=== PATIENT | female | born 1985 | race Caucasian/White ===

== ENCOUNTER → 2017-01-11 | Day surgery (SDC) | payer OTHER ==
[~2017-01-11] VITALS: Ht 149.9 cm; Wt 74.0 kg
[~2017-01-11] MED LIST: ACETAMINOPHEN 1000 MG/100 ML 100 ML IV ONE; CHLORHEXIDINE GLUCONATE 2 % 1 PACK (2 CLOTHS) TOPICAL PRN; DO NOT ADM ANY ANTICOAGULANT DRUGS PRN; FAMOTIDINE 20 MG/2 ML VIAL ONE; INSULIN HUMAN REGULAR 1,000 UNITS/10 ML VIAL SQ PRN; KETOROLAC TROMETHAMINE 30 MG/ML (IVP) VIAL IV PUSH SCH; KETOROLAC TROMETHAMINE 60 MG/2 ML (IM) VIAL IM ONE; LACTATED RINGER'S 1000 ML IV PRN; METOPROLOL TARTRATE 25 MG TAB PO PRN; MIDAZOLAM HCL 2 MG/2 ML VIAL ONE; MORPHINE SULFATE 4 MG/ML INJ ONE; ONDANSETRON HCL 4 MG/2 ML VIAL IV PUSH ONE; POVIDONE IODINE 5% (ANTISEPSIS KIT) 4 APPLICATIONS EACH NARE PRN; PROMETHAZINE INJ 25 MG/ML VIAL ONE; PROPOFOL 200 MG/20 ML AMP IV ONE; SODIUM CHLORID 0.9% 500 ML IV PRN; ceFAZolin 2 GM PREMIX 50 ML ONE
--- NOTE | 2017-01-11 09:06 | MP ---
cc: LOI CANTRELL MD,RENA GRAY,KANCHAN Owen MD DATE OF SURGERY: 01/11/2017 PREOPERATIVE DIAGNOSIS 1. Stage IIB cervix cancer. 2. Status post external radiation with ewiiaapaayp chemotherapy. 3. In need of brachytherapy. POSTOPERATIVE DIAGNOSIS 1. Stage IIB cervix cancer. 2. Status post external radiation with ewiiaapaayp chemotherapy. 3. In need of brachytherapy. PROCEDURE Examination under anesthesia, ultrasound-guided cervix dilation with Abraham sleeve placement for brachytherapy. SURGEON Dr. Kanchan Gray. SOLAR LAB TECHNICIAN [place] Anesthesia Director. ANESTHESIA Laryngeal mask anesthesia. ESTIMATED BLOOD LOSS 20 cc. 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 She has completed her external radiation with weekly ewiiaapaayp chemotherapy under the direction of Dr. Loi Cantrell in [facility]. He contacted me and asked if we could place a Abraham sleeve to help facilitate brachytherapy. She was seen in our office and counseled. The procedure was reviewed, questions were answered. She is seen again this morning. She expressed good understanding, questions were answered and she agrees to move forward. FINDINGS On exam under anesthesia there is no appreciably enlarged inguinal lymph nodes. External genitalia without mass or lesion. The cervix is circumferentially smooth around the perimeter. There is still some central tumor visible and palpable. There is some diffuse irritation suggestive of response to radiation. There is a little bit of thickness to the parametria but no overt mass or nodularity, and there is some mobility to the uterus and cervix suggesting ongoing response to chemotherapy and radiation. The uterine cavity sounds to 7 cm, a fairly straight access neither anteverted or retroverted. No other mass or nodularity is detected on exam. DETAILS OF PROCEDURE The patient was taken to the operating room and placed in dorsal lithotomy position. After laryngeal mask anesthesia was administered a timeout was undertaken. She was identified by sight recognition and hospital ID bracelet and the proposed procedure was reviewed and confirmed. She was carefully positioned in lithotomy position. Exam under anesthesia was performed with findings as described above. She was prepped and draped in sterile fashion. The cervix was grasped, the uterine cavity sounded, and under direct abdominal ultrasound guidance the cervix was dilated and the uterine cavity was sounded. A 6 cm Abraham sleeve, made available by Dr. Cantrell, was placed and secured to the face of the cervix using three interrupted 0 Vicryl sutures in a [id number] fashion secured circumferentially to the cervix at the 10 o'clock, 2 o'clock and 6 o'clock position and double-threaded through the four holes on the faceplate of the Abraham sleeve as the Abraham sleeve was inserted into the cervix. The sutures were tied securely circumferentially. The cavity was sounded with a narrow dilator and confirmed that the Abraham sleeve was in proper place and extended to the fundus with ultrasound guidance. The vagina was irrigated. There were no remaining foreign objects in the vagina. Preliminary and final counts were correct. She was returned to dorsal supine position and was pending reversal of anesthesia when I left the operating room to precede her to the post-anesthesia care unit. MD DRE Maya/GERSON /8:28 AM /8:47 AM
--- NOTE | 2017-01-11 09:18 | RADRPT ---
EXAM DATE/TIME: 01/11/2017 07:41 [facility] COMPARISON: No previous studies available for comparison. INDICATIONS : Risa sleeve placement. MEDICAL HISTORY : Cervical cancer. SURGICAL HISTORY : Right chest port. Risa sleeve placement. ENCOUNTER: Initial ACUITY: 1 day PAIN SCORE: 0/10 LOCATION: Uterus. AREA EVALUATED: Uterus. FINDINGS: Limited transabdominal sonographic images of the pelvis at the time of RISA sleeve placement reveals 2 echogenic linear structures associated with the endometrial canal. CONCLUSION: Limited images as detailed above. Oliverio Suggs Jr., MD on January 11, 2017 at 9:16 Board Certified Radiologist. This report was verified electronically.
[2017-01-11 10:05] VITALS: BP 102/62; PULSE 78; RESP 16; TEMP 97.7; O2SAT 99
== END | disposition home or self-care (01) ==
LOC: HSDC 05:44
PROVIDERS: ATTEND Obstetrics & Gynecology Gynecologic Oncology
DX: C53.9 Malignant neoplasm of cervix uteri, unspecified (principal)
CPT/HCPCS: 00940; 57155; 76998; 86850; 86900; 86901; J0131; J0690; J1885; J2250; J2270; J2405; J2550; J3010; J7040